=== PATIENT | female | born 1940 | race Caucasian/White ===

== ENCOUNTER 2022-05-22 08:36 | Day surgery (SDC) | payer OTHER ==
[2022-05-22 08:36] LABS: Absolute Lymphocytes (CBC) 1.3 K/uL (0.7-4.9); Hematocrit 35.6 % (36.0-45.0); Lymphocytes % 19.3 % (15.3-44.8); MPV 7.9 fL (7.6-11.3)
--- NOTE | 2022-05-22 08:46 | RAD REPORT ---
EXAM DESCRIPTION: RAD - Chest Pa And Lat (2 Views) - 05/22/2022 8:38 am CLINICAL HISTORY: Pre op pending mass removal from back COMPARISON: <Comparisons> FINDINGS: Lines: None. Lungs: No evidence of edema or pneumonia. Pleural: No significant pleural effusions or pneumothorax. Cardiac: The heart size is within normal limits. Mediastinum: Within normal limits. Bones: No acute fractures. Other: None IMPRESSION: No acute cardiopulmonary disease.
[2022-05-22 08:53] LABS: Potassium 4.2 mmol/L (3.5-5.1)
[2022-05-22] MEDS ORDERED: MIDAZOLAM HCL 2 MG/2 ML INJ ONE (09:02)
[2022-05-22] MEDS ORDERED: FENTANYL CITR 100 MCG/2 ML ONE (09:02)
[2022-05-22] MEDS ORDERED: propofoL 200 MG/20 ML VIAL IV ONE (09:02)
[2022-05-22] MEDS ORDERED: NA CHLORIDE 0.9% 1,000 ML ONE (09:09)
[2022-05-22] MEDS ORDERED: CIPROFLOXACIN 400mg IV 400 MG/200 ML BAG IV ONE (09:09)
[2022-05-22] MEDS ORDERED: LIDOCAINE 2% MPF 5 ML VIAL ONE (09:20)
[2022-05-22] MEDS ORDERED: dexAMETHasone 4 MG/ML VIAL ONE (09:38)
[2022-05-22] MEDS ORDERED: ONDANSETRON 4 MG/2 ML VIAL ONE (09:38)
[2022-05-22] MEDS ORDERED: EPHEDRINE SULF 50 MG/ML VIAL ONE (10:00)
--- NOTE | 2022-05-22 10:01 | P.BOP ---
Preoperative diagnosis: tender subQ back masses Postoperative diagnosis: same Primary procedure: Escisional biopsy subQ mass: 1. upper back 3.5 x 3.5cm Secondary procedure: 2. Midback 3 x 3cm, 3. Lower back 2 x 2cm Estimated blood loss: <10cc Specimen: mass x 3 Findings: as above Anesthesia: General Complications: None Transferred to: Recovery Room Condition: Good
[2022-05-22 11:18] VITALS: BP 122/42; O2SAT 100
[2022-05-22 12:27] VITALS: TEMP 97
--- NOTE | 2022-05-22 21:15 | OP ---
Date of Procedure: 05/22/2022 Surgeon: Brendan Pereyra MD Preoperative Diagnosis: Tender subcutaneous back masses. Postoperative Diagnosis: Tender subcutaneous back masses. Procedures: 1.Excisional biopsy of tender subcutaneous upper back mass, 3.5 x 3.5 cm. 2.Excisional biopsy of tender subcutaneous mass in mid back, 3 x 3 cm. 3.Excisional biopsy of tender subcutaneous mass in lower back, 2 x 2 cm. Estimated Blood Loss: Less than 10 cc. Specimen: Mass x3. Anesthesia: General plus local. Finding: As above. Complications: None. Indications: This is a case of a female who comes to us with 3 masses, increasing in size, changing in size and color and tenderness. Patient wants them excised. The benefits, alternatives, and risks of excision were fully explained, which include, but not limited to infection, bleeding, damage to a djacent structures, anesthesia complication, recurrence, NV, and even . She also understands th is might not relieve any symptoms. She may need more than one surgical intervention. She understood and signed a consent. The areas of concern were marked by me and the patient in the holding room. Description Of Procedure: The patient was brought to the operating room and placed in supine positio n. Anesthesia was given without complication. The patient was placed in lateral decubitus position with proper protection. Back areas were prepped and draped in usual sterile fashion. Each mass was done individually using the same technique, which consisted of sharp incision of the skin and mass wa s excised. The ones on the mid and upper one are deeper. Each mass was excised individually. Hemos tasis was obtained and then we proceeded to close this in this way: At the one in the upper back, we did 3-0 chromic subcutaneous and then a 3-0 nylon on the skin. The midback was 3-0 chromic subcutan eous and 3-0 nylon on the skin. On the lower back, we only used a 3-0 nylon on the skin. The patien t tolerated the procedure well. Sponge count and instrument counts were correct. Hemostasis was obt ained before closure and irrigation was done also before closure with local anesthetic applied. AMANDA/JAZZMINE Voice ID: [id number] Report ID: [id number]
--- NOTE | 2022-05-22 21:15 | DS ---
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 Procedure: Excisional biopsy of upper, mid back, and lower back subcutaneous masses. Disposition: Home. Activity: As tolerated, no heavy lifting. Follow Up: In my office in 1 week. Call for appointment at [phone]. Discharge Instructions: Keep area dry for 48 hours, then may shower with dressings off. AMANDA/JAZZMINE Voice ID: [id number] Report ID: [id number]
--- NOTE | 2022-05-23 06:32 | EKG ---
Test Date: 2022-05-22 Test Time: 08:15:59 Sulfonation Equipment Operator: LINDA MEASUREMENT RESULTS: Intervals: Rate: 56 AK: 150 QRSD: 98 QT: 430 QTc: 414 [place]: P: 56 AK: 150 QRS: 7 T: 30 INTERPRETIVE STATEMENTS: Sinus bradycardia with marked sinus arrhythmia Otherwise normal ECG No previous ECG available for comparison Electronically Signed On 05-23-22 06:30:28 [employer]UGBOAT ENGINEER by Tho Valencia
== END 2022-05-22 11:51 | disposition home or self-care (01) ==
LOC: OR 08:36
PROVIDERS: ATTEND Surgery
PROC: 0JB70ZZ Excision of Back Subcutaneous Tissue and Fascia, Open Approach (ICD-10-PCS; 2022-05-22)
PROC: 0JB70ZZ Excision of Back Subcutaneous Tissue and Fascia, Open Approach (ICD-10-PCS; 2022-05-22)
PROC: 0JB70ZZ Excision of Back Subcutaneous Tissue and Fascia, Open Approach (ICD-10-PCS; principal; 2022-05-22 09:45)
DX: D36.17 Benign neoplasm of peripheral nerves and autonomic nervous system of trunk, unspecified (principal); L72.0 Epidermal cyst; L82.1 Other seborrheic keratosis; E11.9 Type 2 diabetes mellitus without complications; I10 Essential (primary) hypertension; I51.9 Heart disease, unspecified; E78.00 Pure hypercholesterolemia, unspecified
CPT/HCPCS: 93005; 85025; 80048; 36415; 82947; 88304; 88305; 71046; 11404; 11403; 11402; J2704; J1100; J2001; J2250; J3010; J7030; J2405; J0744

== ENCOUNTER 2024-06-22 07:51 | Inpatient (IN) | payer OTHER ==
[2024-06-18 11:46] LABS: Sqamous Epithelial <5 /HPF (None Seen); Urine Bacteria None Seen /HPF (<20); Urine Bilirubin NEGATIVE (Negative); Urine Blood Negative (Negative); Urine Clarity Turbid (Clear); Urine Color Light-Yellow (Yellow); Urine Culture Reflex Order NOT NEEDED; Urine Glucose NEGATIVE (Negative); Urine Ketones NEGATIVE (Negative); Urine Microscopic Reflex YN ORDER UMIC; Urine Nitrite NEGATIVE (Negative); Urine Protein NEGATIVE (Negative); Urine RBC None Seen /HPF (None Seen); Urine Urobilinogen Normal (Normal); Urine WBC <5 /HPF (<5); Urine pH 5.5 (5.0-7.0)
[2024-06-18 11:47] LABS: Absolute Basophils 0.1 K/uL (0-0.5); Absolute Eosinophils 0.3 K/uL (0-0.5); Absolute Monocytes 0.6 K/uL (0.1-1.3); Basophils % 0.7 % (0-1.3); Eosinophils % 3.2 % (0-4.4); Hematocrit 38.3 % (36.0-45.0); Hemoglobin 12.5 g/dL (12.0-15.0); Lymphocytes % 19.7 % (15.3-44.8); MCH 29.6 pg (27.0-35.0); MCHC 32.8 g/dL (32.0-36.0); MCV 90.4 fL (80-100); MPV 9.8 fL (7.6-11.3); Monocytes % 6.4 % (3.3-12.3); Platelets 229 thou/uL (152-406); RBC Red Blood Cell Count 4.23 M/uL (3.86-4.86); Red Cell Distribution Width 14.7 % (12.1-15.2)
[2024-06-18 11:51] LABS: PT Prothrombin Time 11.6 SECONDS (9.4-12.5); PTT, Activated Partial Thromb 38.3 SECONDS (24.3-36.9); Protime INR 1.04
[2024-06-18 12:04] LABS: Albumin 4.3 g/dL (3.4-5.0); Anion Gap 8.4 mEq/L (5.0-15.0); Globulin 4.2 g/dL (2.3-3.5); Potassium 4.4 mEq/L (3.5-5.1); Protein, Total 8.5 g/dL (6.4-8.2)
[2024-06-18 12:37] LABS: Blood Morphology Comment NOT SEEN (NOT SEEN); Platelet Estimate ADEQ; White Blood Cell Scan OK (OK)
--- NOTE | 2024-06-18 14:07 | RAD REPORT ---
EXAMINATION: TWO VIEW CHEST XR CLINICAL INDICATION: Female, 83 years old. [facility] Pre-op pending knee arthroplasty. Hypertension TECHNIQUE: 2 view radiographs of the chest were performed. COMPARISON: 05/22/2022 FINDINGS: The lungs are well inflated and clear. No pneumothorax or sizable effusion. The heart is normal in si ze. Mediastinal contours are unremarkable. IMPRESSION: No acute or significant abnormalities.
[2024-06-22] MEDS: dexAMETHasone 10 MG/ML VIAL ONE (08:27)
[2024-06-22] MEDS: EPINEPHRINE 1 MG/ML VIAL ONE (08:28)
[2024-06-22] MEDS: BUPIVACAINE 0.25% PF 30 ML VIAL ONE (08:28)
[2024-06-22] MEDS: LIDOCAINE 1% MPF 5 ML VIAL ONE (08:28)
[2024-06-22] MEDS: NA CHLORIDE 0.9% 1,000 ML ONE ×2 (08:35→14:15)
[2024-06-22] MEDS: Oxycodone HCl/Acetaminophen 5/325 MG TAB ONE (10:08)
[2024-06-22] MEDS ORDERED: propofoL 200 MG/20 ML VIAL IV ONE (10:08)
[2024-06-22] MEDS: ACETAMINOPHEN 500 MG TAB ONE (10:08)
[2024-06-22] MEDS ORDERED: FENTANYL CITR 100 MCG/2 ML ONE (10:08)
[2024-06-22] MEDS: GABAPENTIN 100 MG CAP ONE (10:08)
[2024-06-22] MEDS: CELECOXIB 100 MG CAPSULE ONE (10:08)
[2024-06-22] MEDS ORDERED: LIDOCAINE 1% MPF 2 ML AMPULE ONE (10:08)
[2024-06-22] MEDS: MAGNESIUM SULFATE 1 gm IVPB 1 GM/100 ML BAG IV ONE (11:03)
[2024-06-22] MEDS ORDERED: LIDOCAINE 2% MPF 5 ML VIAL ONE (11:03)
[2024-06-22] MEDS: DEXMEDETOMIDINE HCL 200 MCG/2 ML VIAL ONE (11:03)
[2024-06-22] MEDS ORDERED: KETAMINE HCL IN 0.9 % NACL 50 MG/5 ML SYRINGE IV ONE (11:10)
[2024-06-22] MEDS: ONDANSETRON 4 MG/2 ML VIAL ONE (12:04)
[2024-06-22] MEDS: CEFAZOLIN SODIUM 2 GM/VIAL ONE (12:25)
[2024-06-22] MEDS: TRANEXAMIC ACID 1,000 MG/10 ML VIAL IV ONE (12:30)
[2024-06-22] MEDS ORDERED: EPHEDRINE SULF 50 MG/ML VIAL ONE (12:32)
[2024-06-22] MEDS ORDERED: HYDRALAZINE HCL 20 MG/ML VIAL ONE (13:09)
[2024-06-22] MEDS ORDERED: DOCUSATE NA 100 MG CAP PO PRN (14:34)
[2024-06-22] MEDS ORDERED: HYDROCODONE/APAP 7.5/325 MG TAB PO PRN (14:34)
--- NOTE | 2024-06-22 14:41 | P.BOP ---
Preoperative diagnosis: left knee arthritis Postoperative diagnosis: same Primary procedure: left total knee arthoplasty Estimated blood loss: 100 ccs Anesthesia: General Transferred to: Recovery Room Condition: Good
[2024-06-22] MEDS: HYDROMORPHONE HCL 1 MG/ML INJ ONE (15:14)
[2024-06-22] MEDS ORDERED: HOME MED 1 EA UNK (Tizanidine Hcl [Zanaflex] 2 MG Capsule) PO PRN (17:59)
--- NOTE | 2024-06-22 18:01 | P.CNS ---
Date of Consult: 06/22/24 Reason for Consult: Medical management Chief Complaint: Patient presenting with left total knee replacement History of Present Illness: Patient is a 83-year-old female who presents with left total knee replacement. Patient was having some tenderness and plan is for patient to get out of bed and ambulate. Patient will be admitted to the hospital for further evaluation. Allergies codeine Allergy (Verified 06/18/24 10:45) Vomiting erythromycin base Allergy (Verified 06/18/24 10:45) Hives/Rash meperidine [From Demerol] Allergy (Verified 06/18/24 10:45) Nausea/Vomiting Penicillins Allergy (Verified 06/18/24 10:45) Hives/Rash propoxyphene [From Darvon] Allergy (Verified 06/18/24 10:45) Nausea/Vomiting Home Medications: Acetaminophen [Tylenol Arthritis] 650 mg PO BID 05/22/22 Allopurinol 100 mg PO BID 05/22/22 Amlodipine Besylate [Norvasc] 2.5 mg PO DAILY 05/22/22 Lisinopril [Zestril] 2.5 mg PO DAILY 05/22/22 Magnesium Oxide [Magnesium] 400 mg PO DAILY 05/22/22 Simvastatin 20 mg PO DAILY 05/22/22 Sitagliptin Phosphate [Januvia] 100 mg PO DAILY 05/22/22 hydroCHLOROthiazide [Hydrochlorothiazide*] 12.5 mg PO DAILY 05/22/22 Ergocalciferol (Vitamin D2) [Vitamin D 50,000 Unit Cap] 50,000 unit PO EVERY 7TH DAY 06/18/24 Tizanidine HCl [Zanaflex] 2 mg PO Q8HP PRN 06/18/24 - Past Medical/Surgical History Diabetic: Yes -: diabetes -: stage 2 kidney disease -: hypertension -: arthritis -: hysterectomy -: back surgery (ruptured disc) -: cataract - Family History Mother Medical History: Diabetes - Social History Smoking Status: Former smoker Alcohol use: Yes CD- Drugs: No Caffeine use: Yes Place of Residence: Home Review of Systems 10-point ROS is otherwise unremarkable Physical Examination Temp Pulse Resp BP Pulse Ox 96.9 F 96 H 15 141/63 H 96 06/22/24 16:00 06/22/24 16:00 06/22/24 16:00 06/22/24 16:00 06/22/24 16:00 General: Alert, In no apparent distress, Oriented x3 HEENT: Atraumatic, PERRLA, Mucous membr. moist/pink, EOMI, Sclerae nonicteric Neck: Supple, 2+ carotid pulse no bruit, No LAD, Without JVD or thyroid abnormality Respiratory: Clear to auscultation bilaterally, Normal air movement Cardiovascular: Regular rate/rhythm, Normal S1 S2 Gastrointestinal: Normal bowel sounds, No tenderness Musculoskeletal: Tenderness (Left total knee) Integumentary: No rashes Neurological: Normal speech, Normal strength at 5/5 x4 extr, Normal tone, Sensation intact, Cranial nerves 3-12 intact, Normal affect, Abnormal gait Lymphatics: No axilla or inguinal lymphadenopathy - Problems (1) Status post total left knee replacement Status: Acute (2) Metabolic syndrome Status: Acute (3) Chronic kidney disease, stage III (moderate) Status: Acute Conclusions/ Impression: Plan: 1. Left total knee replacement; continue with physical therapy. Continue with pain control. Continue with DVT prophylaxis 2. Metabolic syndrome; strict blood pressure and blood sugar control 3. Chronic kidney disease; monitor renal function Critical Care: No Time Spent Managing Pts care (In Minutes): 45
[2024-06-22] MEDS: CEFAZOLIN 1 GM in NA CHLORIDE 0.9% 50 ML IVPB SCH (18:02)
[2024-06-22 18:47] VITALS: BMI 31.6
[2024-06-22] MEDS: allopurinoL 100 MG TAB PO SCH (21:18)
[2024-06-22] MEDS: ATORVASTATIN 10 MG TAB PO SCH (21:18)
[2024-06-22] MEDS: ONDANSETRON 4 MG/2 ML VIAL IV PRN (21:18)
--- NOTE | 2024-06-23 00:58 | OP ---
Date of Procedure: 06/22/2024 Surgeon: Nikunj Woodruff MD Preoperative Diagnosis: Left severe degenerative joint disease of the knee, which has not responded to conservative management. 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 Procedure Performed: Left total knee arthroplasty using the Biomet total knee system. Estimated Blood Loss: 100 cc. Complications: There were no complications. Specimens: No pathology specimens sent. Indications For Operation: Ms. Piedra is an 83-year-old female, who has been suffering for many yea rs with debilitating knee pain. She has treated this with injections, medications, attempted to lose weight, essentially now limits her activities of daily living, and is extremely painful for her. Ri sks, benefits, and alternatives to total knee arthroplasty have been discussed with her. She states she understands things as presented and wished to proceed. Description Of Procedure: The patient was taken to the operating room and placed in supine position. General anesthesia was easily obtained by the Anesthesia staff. She had previously had a block in the holding area. Following this, a well-padded tourniquet was placed on superior left thigh. Left lower extremity was then prepped and draped in usual sterile fashion for the procedure. After this, the leg was then elevated and gently exsanguinated with Scooby wrap. Tourniquet was raised. A standard anterior approach was taken down carefully through skin and soft tissues. Meticulous hemostasis enrico ng maintained using Bovie electrocautery. It should be noted there was quite a bit of adipose tissue . However, the tibial tubercle was identified and the extensor mechanism was then exposed using appr opriate level. After this, a standard medial parapatellar arthrotomy was then performed with liberat ion of approximately 20 cc of rather normal-appearing synovial fluid. This revealed severe bone-on-b one changes throughout. After this, the medial and lateral menisci as well as ACL were resected and intramedullary guide was placed. Distal cut was made and it was sized to a size 67-1/2. The remaind er of the femoral cuts were made. After this, attention was then turned to the tibia. It was found to be quite dished out medially, but a standard tibia cut was then made removing the tibia in 1 piece . It was then trialed using the trial femur and trial tibia with size 10 polyethylene. It comes to full extension, it appears to be balanced. The patella appears to glide well. After this, the munson la was then calipered and cut and trial patella was then placed. It again glides very well. After t his, attention was then turned to the femur, where the box was cut for the posterior cruciate sacrifi cing knee and the tibia was punched. All surfaces were then prepped for cementation. All of the fin al components were then cemented with the exception of the tibial polyethylene. The cement was allow ed to dry and any unsupported cement was removed. Once the cement was dried, the trial polyethylene was removed and it was replaced with a size 10 polyethylene as it does come to full flexion, full ext ension, and it was balanced. After this was copiously irrigated and more search was made for any res idual cement, the extensor mechanism was then repaired using heavy Ethibond sutures. This was follow ed by closure of skin using Vicryl sutures followed by matilde. The patient was then placed in a kylah y well-padded sterile dressing, awakened, taken to recovery room in good condition. No complications . SE/MODL Voice ID: [id number] Report ID: [id number]
[2024-06-23] MEDS: ENOXAPARIN 30 MG/0.3 ML SQ SCH (06:23)
[2024-06-23 07:39] LABS: Hematocrit 33.5 % (36.0-45.0); Hemoglobin 11.2 g/dL (12.0-15.0)
[2024-06-23 07:50] LABS: Anion Gap 6.3 mEq/L (5.0-15.0); Potassium 4.3 mEq/L (3.5-5.1)
[2024-06-23] MEDS ORDERED: HOME MED 1 EA UNK (Sitagliptin Phosphate [Januvia] 50 MG Tablet) PO SCH (09:00)
[2024-06-23] MEDS ORDERED: HOME MED 1 EA UNK (Simvastatin [Simvastatin] 20 MG Tablet) PO SCH (09:00)
[2024-06-23] MEDS: ALOGLIPTIN BENZOATE 12.5 MG TABLET PO SCH (09:40)
[2024-06-23] MEDS: AMLODIPINE 2.5 MG TAB PO SCH (09:41)
[2024-06-23] MEDS: TIZANIDINE 4 MG TABLET PO PRN (14:43)
[2024-06-23 22:28] VITALS: O2SAT 94
[2024-06-24 07:07] LABS: Hematocrit 30.1 % (36.0-45.0); Hemoglobin 10.1 g/dL (12.0-15.0)
[2024-06-24 07:10] LABS: Absolute Lymphocytes (CBC) 1.3 K/uL (0.7-4.9); Absolute Monocytes 1.2 K/uL (0.1-1.3); Absolute Neutrophil 9.5 K/uL (1.8-8.0); Basophils % 0.1 % (0-1.3); Hematocrit 30.4 % (36.0-45.0); Hemoglobin 10.1 g/dL (12.0-15.0); Lymphocytes % 10.7 % (15.3-44.8); MCH 30.2 pg (27.0-35.0); MCHC 33.3 g/dL (32.0-36.0); MCV 90.8 fL (80-100); MPV 8.9 fL (7.6-11.3); Monocytes % 10.1 % (3.3-12.3); Neutrophils % 79.1 % (41.7-73.7); Platelets 195 thou/uL (152-406); RBC Red Blood Cell Count 3.34 M/uL (3.86-4.86); Red Cell Distribution Width 14.9 % (12.1-15.2)
[2024-06-24 07:27] LABS: Anion Gap 6.3 mEq/L (5.0-15.0); Magnesium 2.4 mg/dL (1.6-2.4); Potassium 4.3 mEq/L (3.5-5.1)
--- OUTSIDE RECORDS SUMMARY | 2024-06-24 10:52 | XMS REPORT | Continuity of Care Document ---
Author Name Unknown Address [address] [facility] [address] [place] [address] [facility] thconnect Address [address] [facility] [address] [place] [address] Care Team Providers Care Mobile Manager Name Role Phone Shravan Barahona Primary Care Physician [phone] DESTIN DAMIAN Attending Clinician Unavailable Rush Arroyo MD Attending Clinician [phone] Lindsey Peralta MA Attending Clinician Unavailable Jayla Anderson MA Attending Clinician Unavailab Mehreen Melendez MA Attending Clinician Unavailabl e DESTIN DAMIAN, LANA Attending Clinician BEN Muñoz APRN Attending Clinician Unavail able DESTIN DAMIAN, MAR Attending Clinician Howard ble Payers Payer Name Policy Type Policy Number Effective Date Expirati on Date Source [facility] AAR MEDICARE COMPLETE [id number] 2020 00:00:00 2020 00:00:00 [facility] WELLMED [id number] 2020 00:00:00 Problems Condition Name Condition Details Condition Category Status Onset Date Resolution Date Last Treatment Date Treating Clinician Comments Source Chronic pain of both knees Chronic pain of both knees Disease Active 12-01 00:00: 00 [facility] Bilateral primary osteoarthr itis of knee Bilateral primary osteoarthr itis of knee Disease Active 12-01 00:00: 00 [facility] Left knee pain Left knee pain Problem Active [facility] Bilateral knee pain Bilateral knee pain Problem Active [facility] Osteoarthr itis of left knee Osteoarthr itis of left knee Problem Active [facility] Osteoarthr itis of right knee Osteoarthr itis of right knee Problem Active [facility] Osteoarthr itis of knees, bilateral Osteoarthr itis of knees, bilateral Problem Active [facility] Allergies, Adverse Reactions, Alerts Allergy Name Allergy Type Status Severity Reaction(s) Onset Date Inactive Date Treating Clinician Comments Source Codeine Allergy to substanc e Active 11-24 00:00: 00 [facility] Erythrom ycin Allergy to substanc e Active 11-24 00:00: 00 [facility] Penicill ins Allergy to substanc e Active 11-24 00:00: 00 [facility] Penicill ins Allergy to drug (finding ) Active [facility] Percocet TABS Allergy to drug (finding ) Active [facility] Vicodin TABS Allergy to drug (finding ) Active [facility] codeine Allergy to drug (finding ) Active [facility] Darvocet A500 Allergy to drug (finding ) Active [facility] erythrom ycin Allergy to drug (finding ) Active [facility] Social History Social Habit Start Date Stop Date Quantity Comments Source Sexual orientation [facility] Exposure to SARS-CoV-2 (event) 2022-10-19 00:00:00 2022-10-29 12:32:00 Not sure [facility] Alcohol intake 2021-08-10 00:00:00 2021-08-10 00:00:00 Ex-drinker (finding) [facility] History of Social function 2021-08-10 00:00:00 2021-08-10 00:00:00 [facility] Sex Assigned At 1940 00:00:00 1940 00:00:00 [facility] Smoking Status Start Date Stop Date Source Never smoked tobacco [facility] Medications Ordered Medication Name Filled Medication Name Start Date Stop Date Current Medication? Ordering Clinician Indication Dosage Frequency Signature (SIG) Comments Components Source Sodium Hyaluronate (Viscosup) solution prefilled syringe 20 mg 2022-07 17:30: 00 05-28 17:30 :00 No [id number] 20mg [facility] lidocaine (Xylocaine) 1 % injection 1 mL 2022-07 17:30: 00 05-28 17:30 :00 No [id number] 1mL [facility] Sodium Hyaluronate (Viscosup) solution prefilled syringe 20 mg 2022-07 16:00: 00 05-21 16:00 :00 No [id number] 20mg [facility] lidocaine (Xylocaine) 1 % injection 1 mL 2022-07 16:00: 00 05-21 16:00 :00 No [id number] 1mL [facility] Sodium Hyaluronate (Viscosup) solution prefilled syringe 20 mg 2022-07 15:30: 00 05-14 15:30 :00 No [id number] 20mg [facility] lidocaine (Xylocaine) 1 % injection 1 mL 2022-07 15:30: 00 05-14 15:30 :00 No [id number] 1mL [facility] Sodium Hyaluronate solution prefilled syringe 20 mg 18 18:00: 00 10-29 18:00 :00 No [id number] 20mg [facility] lidocaine (Xylocaine) 1 % injection 1 mL 10-29 18:00: 00 10-29 18:00 :00 No [id number] 1mL 1 mL, Injection, Once PRN Procedure, Starting on Fri10/29/22 at 1300, For 1 dose [facility] Sodium Hyaluronate solution prefilled syringe 20 mg 10-22 18:00: 00 10-22 18:00 :00 No [id number] 20mg [facility] lidocaine (Xylocaine) 1 % injection 1 mL 10-22 18:00: 00 10-22 18:00 :00 No [id number] 1mL [facility] Sodium Hyaluronate solution prefilled syringe 20 mg 10-11 18:00: 00 10-11 18:00 :00 No [id number] 20mg [facility] lidocaine (Xylocaine) 1 % injection 1 mL 10-11 18:00: 00 10-11 18:00 :00 No [id number] 1mL [facility] Sodium Hyaluronate solution prefilled syringe 20 mg 03-14 18:15: 02 03-14 18:15 :00 No [id number] 20mg [facility] lidocaine (Xylocaine) 1 % injection 1 mL 03-14 18:15: 03-14 18:15 :00 No [id number] 1mL [facility] Sodium Hyaluronate solution prefilled syringe 20 mg 03-07 18:38: 52 03-07 18:38 :00 No [id number] 20mg [facility] lidocaine (Xylocaine) 1 % injection 1 mL 03-07 18:38: 52 03-07 18:38 :00 No [id number] 1mL [facility] Sodium Hyaluronate solution prefilled syringe 20 mg 02-26 18:37: 02 02-26 18:37 :00 No [id number] 20mg [facility] lidocaine (Xylocaine) 1 % injection 1 mL 02-26 18:37: 02 02-26 18:37 :00 No [id number] 1mL [facility] sodium hyaluronate (viscosup) (Hyalgan) injection 20 mg 02-01 15:45: 00 02-22 13:59 :00 No [id number] 20mg [facility] sodium hyaluronate (viscosup) (Hyalgan) injection 20 mg 2020-07 21:15: 00 Yes [id number] 20mg [facility] allopurinol (Zyloprim) 100 MG tablet 11-13 00:00: 00 Yes [facility] amLODIPine (Norvasc) 2.5 MG tablet 11-13 00:00: 00 Yes [facility] furosemide (Lasix) 20 MG tablet 11-13 00:00: 00 Yes [facility] hydroCHLORO thiazide (HYDRODiuri l) 12.5 MG tablet 11-13 00:00: 00 Yes [facility] lisinopril 2.5 MG tablet - 00:00: 00 Yes [facility] simvastatin (Zocor) 20 MG tablet - 00:00: 00 Yes [facility] Procedures Procedure Date / Time Performed Performing Clinicia n Source ARTHROCENTESIS ASPIR&/INJ MAJOR JT/BURSA W/O BILATERAL 2023-05-28 17:30:00 Destin Damian [facility] ARTHROCENTESIS ASPIR&/INJ MAJOR JT/BURSA W/O BILATERAL 2023-05-21 16:00:00 Destin Damian [facility] ARTHROCENTESIS ASPIR&/INJ MAJOR JT/BURSA W/O BILATERAL 2023-05-14 15:30:00 Destin Damian [facility] ARTHROCENTESIS ASPIR&/INJ MAJOR JT/BURSA W/O BILATERAL 2022-10-29 18:00:00 Destin Damian [facility] ARTHROCENTESIS ASPIR&/INJ MAJOR JT/BURSA W/O US BILATERAL 2022-10-22 18:00:00 Destin Damian [facility] ARTHROCENTESIS ASPIR&/INJ MAJOR JT/BURSA W/O BILATERAL 2022-10-11 18:00:00 Destin Damian [facility] ARTHROCENTESIS ASPIR&/INJ MAJOR JT/BURSA W/O BILATERAL 2022-03-14 18:15:02 Destin Damian [facility] ARTHROCENTESIS ASPIR&/INJ MAJOR JT/BURSA W/O BILATERAL 2022-03-07 18:38:52 Destin Damian [facility] ARTHROCENTESIS ASPIR&/INJ MAJOR JT/BURSA W/O BILATERAL 2022-02-26 18:37:02 Destin Damian [facility] [[facility]] [facility] - [facility] Injection 2020-10-23 00:00:00 [facility] - [facility] Injection 2020-03-13 00:00:00 [facility] - [facility] Injection 2019-08-04 00:00:00 [facility] - [facility] Injection 2019-06-25 00:00:00 [facility] - [facility] Injection 2018-10-20 00:00:00 [facility] Plan of Care Planned Activity Planned Date Details Comments Source Diagnostic Test Pending 2020-10-23 00:00:00 [[facility]] [facility] - Author[facility] Injection [code = [[facility]] Ortho - [facility] Injection] [facility] Diagnostic Test Pending 2020-03-13 00:00:00 [[facility]] Ortho - Authorize Injection [code = [[facility]] Ortho - [facility] Injection] [facility] Diagnostic Test Pending 2020-03-13 00:00:00 [[facility]] Ortho - Authorize Injection [code = [[facility]] Ortho - [facility] Injection] [facility] Diagnostic Test Pending 2019-08-04 00:00:00 [[facility]] Ortho - Authorize Injection [code = [[facility]] Ortho - [facility] Injection] [facility] Diagnostic Test Pending 2019-08-04 00:00:00 [[facility]] Ortho - Authorize Injection [code = [[facility]] Ortho - Authorize Injection] [facility] Diagnostic Test Pending 2019-06-25 00:00:00 [[facility]] Ortho - Authorize Injection [code = [[facility]] Ortho - [facility] Injection] [facility] Diagnostic Test Pending 2018-10-20 00:00:00 [[facility]] Ortho - Authorize Injection [code = [[facility]] Ortho - [facility] Injection] [facility] Encounters Start Date/Time End Date/Time Encounter Type Admission Type Attending Clinicians Care Facility Care Department Encounter ID Source 2022-10-23 08:34:07 Outpatient [facility] [id number] [facility] 2022-10-11 12:31:33 Outpatient [facility] [id number] [facility] 2022-10-03 15:15:12 Outpatient [facility] [id number] [facility] 2022-10-02 10:57:41 Outpatient [facility] [id number] [facility] 2022-09-17 10:08:54 Outpatient [facility] [id number] [facility] 2022-08-09 09:35:32 Outpatient [facility] [id number] [facility] 2021-08-03 08:39:48 Outpatient BRETTMARTN [facility] [id number] [facility] 2021-07-25 15:32:54 Outpatient BRETT, DESTIN [facility] [id number] [facility] 2023-05-28 11:30:00 2023-05-28 11:43:15 Procedure Visit Destin Damian [facility] [place] [facility] [place] 2 1.2.840.114 350.1.13.58 9.2.7.2.686 [id number] [facility] 2023-05-21 10:00:00 2023-05-21 10:42:19 Procedure Visit Destin Damian [facility] [place] 2 1.2.840.114 350.1.13.58 9.2.7.2.686 [id number] [facility] 2023-05-14 10:30:00 2023-05-14 10:30:00 Procedure Visit Destin Damian [facility] [place] 2 1.2.840.114 350.1.13.58 9.2.7.2.686 [id number] [facility] 2022-10-29 13:00:00 2022-10-29 13:26:13 Procedure Visit Destin Damian [facility] [place] 1.2.840.114 350.1.13.58 9.2.7.2.686 [id number] [facility] 2022-10-22 13:00:00 2022-10-22 13:21:21 Procedure Visit Destin Damian [facility] [place] 1.2.840.114 350.1.13.58 9.2.7.2.686 [id number] [facility] 2022-10-11 13:00:00 2022-10-11 13:27:52 Procedure Visit Destin Damian [facility] [place] 1.2.840.114 350.1.13.58 9.2.7.2.686 [id number] [facility] 2022-03-14 13:30:00 2022-03-14 13:30:00 Procedure Visit Destin Damian [facility] [place] 1.2.840.114 350.1.13.58 9.2.7.2.686 [id number] [facility] 2022-03-07 13:30:00 2022-03-07 13:38:02 Procedure Visit Destin Damian [facility] [place] 1.2.840.114 350.1.13.58 9.2.7.2.686 [id number] [facility] 2022-02-26 13:30:00 2022-02-26 13:49:53 Procedure Visit Destin Damian [facility] [place] 1.2.840.114 350.1.13.58 9.2.7.2.686 [id number] [facility] 2022-02-11 00:00:00 2022-02-11 00:00:00 Telephone Rush Arroyo [facility] [place] 1.2.840.114 350.1.13.58 9.2.7.2.686 [id number] [facility] 2022-01-28 00:00:00 2022-01-28 00:00:00 Telephone Lindsey Peralta Ashley [facility] [place] 1.2.840.114 350.1.13.58 9.2.7.2.686 [id number] 1 [id number] [facility] 2021-08-10 13:30:00 2021-08-10 13:30:00 Procedure Visit Destin Damian [facility] [place] 1.2.840.114 350.1.13.58 9.2.7.2.686 [id number] 1 [id number] [facility] 2021-07-27 13:30:00 2021-07-27 13:30:00 Procedure Visit Destin Damian [facility] [place] 1.2.840.114 350.1.13.58 9.2.7.2.686 [id number] 1 [id number] [facility] 2021-07-25 00:00:00 2021-07-25 00:00:00 Telephone Jayla Anderson Beatris [facility] [place] 1.2.840.114 350.1.13.58 9.2.7.2.686 [id number] [facility] 2021-05-30 00:00:00 2021-05-30 00:00:00 Orders Only Mehreen Sommers Doriz [facility] [place] 1.2.840.114 350.1.13.58 9.2.7.2.686 [id number] [facility] 2020-12-07 13:03:13 2020-12-07 13:24:47 Procedure Visit Mart Damiann [facility] [place] 1.2.840.114 350.1.13.58 9.2.7.2.686 [id number] 1 [id number] [facility] 2020-12-01 12:37:35 2020-12-01 13:23:51 Procedure Visit Mart Damiann [facility] [place] 1.2.840.114 350.1.13.58 9.2.7.2.686 [id number] 1 [id number] [facility] 2020-11-24 12:42:14 2020-11-24 13:33:00 Procedure Visit Mart Damiann [facility] [place] 1.2.840.114 350.1.13.58 9.2.7.2.686 [id number] 1 [id number] [facility] 2020-04-12 11:30:00 2020-04-12 11:30:00 Appointmen t; DESTIN DAMIAN [employer]ENING MACHINE SETTER BRETT DESTIN, FLAME HARDENING MACHINE SETTER [facility] [place] 1 [id number] [facility] 2020-04-07 11:30:00 2020-04-07 11:30:00 Appointmen t; DESTIN DAMIAN [employer] HARDENING MACHINE SETTER BRETT DESTIN, FLAME HARDENING MACHINE SETTER [facility] [place] 1 [id number] [facility] 2020-03-31 13:00:00 2020-03-31 13:00:00 Appointmen t; DESTIN DAMIAN FLAME HARDENING MACHINE SETTER BRETT DESTIN, FLAME HARDENING MACHINE SETTER [facility] [place] 1 [id number] [facility] 2019-09-24 11:30:00 2019-09-24 11:30:00 Appointmen t; BRETTMARTN, FLAME HARDENING MACHINE SETTER BRETT DESTIN, FLAME HARDENING MACHINE SETTER [facility] [place] 1 [id number] [facility] 2019-09-17 11:30:00 2019-09-17 11:30:00 Appointmen t; BRETT, DESTIN, FLAME HARDENING MACHINE SETTER BRETT DESTIN, FLAME HARDENING MACHINE SETTER [facility] [place] 1 [id number] [facility] 2019-09-10 11:30:00 2019-09-10 11:30:00 Appointmen t; BRETT, DESTIN, FLAME HARDENING MACHINE SETTER BRETT, DESTIN, FLAME HARDENING MACHINE SETTER [facility] [place] 1 [id number] [facility] 2019-08-04 13:30:00 2019-08-04 13:30:00 Appointmen t; TY, NICHOLETTE , FLAME HARDENING MACHINE SETTER TY, NICHOLETTE, FLAME HARDENING MACHINE SETTER [facility] [place] 1 [id number] [facility] 2018-11-23 13:00:00 2018-11-23 13:00:00 Appointmen t; BRETT DESTIN, FLAME HARDENING MACHINE SETTER BRETT DESTIN, FLAME HARDENING MACHINE SETTER [facility] [place] 1 [id number] [facility] 2018-11-17 13:00:00 2018-11-17 13:00:00 Appointmen t; BRETT, DESTIN, FLAME HARDENING MACHINE SETTER BRETT DESTIN, FLAME HARDENING MACHINE SETTER [facility] [place] 1 [id number] [facility] 2018-11-10 15:00:00 2018-11-10 15:00:00 Appointmen t; BRETT DESTIN, FLAME HARDENING MACHINE SETTER BRETT DESTIN, FLAME HARDENING MACHINE SETTER [facility] [place] [facility] 1 [id number] [facility] 2018-04-17 11:00:00 2018-04-17 11:00:00 Appointmen t; BRETT DESTIN, FLAME HARDENING MACHINE SETTER BRETT DESTIN, FLAME HARDENING MACHINE SETTER [facility] [id number] [facility] 2018-04-10 11:00:00 2018-04-10 11:00:00 Appointmen t; BRETT DESTIN, FLAME HARDENING MACHINE SETTER BRETT DESTIN, FLAME HARDENING MACHINE SETTER [facility] [id number] [facility] 2018-04-03 11:00:00 2018-04-03 11:00:00 Appointmen t; BRETT DESTIN, FLAME HARDENING MACHINE SETTER BRETT, DESTIN, FLAME HARDENING MACHINE SETTER [facility] [id number] [facility] 2017-09-09 13:00:00 2017-09-09 13:00:00 Appointmen t; BRETT, DESTIN, FLAME HARDENING MACHINE SETTER BRETT DESTIN, FLAME HARDENING MACHINE SETTER [facility] [id number] [facility] 2017-02-21 11:00:00 2017-02-21 11:00:00 Lilian owens; DESTIN DAMIAN NP MCDOUGALL, SEAN, NP [facility] [id number] [facility]
[2024-06-24 12:03] VITALS: BP 114/58; TEMP 97.6
[2024-06-27 13:46] LABS: 1,25 Dihydroxy Vitamin D3 <8 pg/mL; Vitamin D 1,25-Dihydroxy Total 12 pg/mL (18-72); Vitamin D,1,25-OH2, D2 12 pg/mL
--- NOTE | 2024-06-29 02:20 | P.PN ---
Date of Service: 06/23/24 Subjective Patient is doing well with physical therapy. Arranging for custodial facility placement. Physical Examination Vitals: Reviewed General: Alert, In no apparent distress, Oriented x3 Respiratory: Clear to auscultation bilaterally, Normal air movement Cardiovascular: Regular rate/rhythm, Normal S1 S2 Gastrointestinal: Normal bowel sounds, No tenderness Musculoskeletal: Tenderness (Left total knee) Integumentary: No rashes Neurological: No focal deficits - Problems (1) Status post total left knee replacement Status: Acute (2) Metabolic syndrome Status: Acute (3) Chronic kidney disease, stage III (moderate) Status: Acute Conclusions/ Impression: Plan: 1. Left total knee replacement; continue with physical therapy. Continue with pain control. Continue with DVT prophylaxis 2. Metabolic syndrome; strict blood pressure and blood sugar control 3. Chronic kidney disease; monitor renal function Critical Care: No Time Spent Managing Pts care (In Minutes): 25
--- NOTE | 2024-06-29 02:21 | P.DS ---
Discharge Date: 06/24/24 Disposition: DC HOME/HOME HEALTH CARE Discharge Condition: GOOD Reason for Admission: Patient presenting with left total knee replacement - Problems (1) Status post total left knee replacement Status: Acute (2) Metabolic syndrome Status: Acute (3) Chronic kidney disease, stage III (moderate) Status: Acute Brief History of Present Illness: Patient is a 83-year-old female who presents with left total knee replacement. Patient was having some tenderness and plan is for patient to get out of bed and ambulate. Patient will be admitted to the hospital for further evaluation. Hospital Course: Patient is doing well and stable for discharge with home health. Patient will continue with physical therapy at discharge and will continue with pain control and DVT prophylaxis. Vital Signs/Physical Exam: Temp Pulse Resp BP Pulse Ox 97.6 F 83 18 114/58 L 100 06/24/24 12:00 06/24/24 12:00 06/24/24 12:00 06/24/24 12:00 06/24/24 12:00 General: Alert, In no apparent distress, Oriented x3 Laboratory Data at Discharge: WBC 12.00 thou/uL (4.3-10.9) H 06/24/24 06:14 Hgb 10.1 g/dL (12.0-15.0) L 06/24/24 06:14 Hgb 10.1 g/dL (12.0-15.0) L D 06/24/24 06:14 Hct 30.1 % (36.0-45.0) L 06/24/24 06:14 Hct 30.4 % (36.0-45.0) L 06/24/24 06:14 Plt Count 195 thou/uL (152-406) 06/24/24 06:14 PT 11.6 SECONDS (9.4-12.5) 06/18/24 11:15 INR 1.04 06/18/24 11:15 APTT 38.3 SECONDS (24.3-36.9) H 06/18/24 11:15 Sodium 140 mEq/L (136-145) 06/24/24 06:14 Potassium 4.3 mEq/L (3.5-5.1) 06/24/24 06:14 BUN 35 mg/dL (7-18) H 06/24/24 06:14 Creatinine 1.14 mg/dL (0.55-1.02) H 06/24/24 06:14 Glucose 127 mg/dL (74-106) H 06/24/24 06:14 Magnesium 2.4 mg/dL (1.6-2.4) 06/24/24 06:14 Total Bilirubin 1.0 mg/dL (0.2-1.0) 06/18/24 11:15 AST 22 U/L (15-37) 06/18/24 11:15 ALT 15 U/L (13-56) 06/18/24 11:15 Alkaline Phosphatase 78 U/L (45-117) 06/18/24 11:15 Home Medications: Acetaminophen [Tylenol Arthritis] 650 mg PO BID 05/22/22 Allopurinol 100 mg PO BID 05/22/22 Amlodipine Besylate [Norvasc] 2.5 mg PO DAILY 05/22/22 Lisinopril [Zestril] 2.5 mg PO DAILY 05/22/22 Magnesium Oxide [Magnesium] 400 mg PO DAILY 05/22/22 Simvastatin 20 mg PO DAILY 05/22/22 Sitagliptin Phosphate [Januvia] 100 mg PO DAILY 05/22/22 hydroCHLOROthiazide [Hydrochlorothiazide*] 12.5 mg PO DAILY 05/22/22 Ergocalciferol (Vitamin D2) [Vitamin D 50,000 Unit Cap] 50,000 unit PO EVERY 7TH DAY 06/18/24 Tizanidine HCl [Zanaflex] 2 mg PO Q8HP PRN 06/18/24 Physician Discharge Instructions: Home Health arranged by Dr. Woodruff's office with: [facility] P:[phone] -DC IV and DC home -Follow-up with PCP in 1 to 2 weeks -Follow-up with Orthopedics in 1 week -Please call Dr. Mendoza at [phone] if any questions regarding hospital stay -Please call nursing station at [phone] if any nursing or medication questions -Return to the emergency room if symptoms worsen Diet: AHA Activity: Fall precautions Followup: Nikunj Woodruff MD [ACTIVE - CAN ADMIT] - 1-2 Weeks Shravan Barahona MD [Primary Care Provider] - 1-2 Weeks Time spent managing pt's care (in minutes): 35
== END 2024-06-24 16:19 | disposition home health service (06) | DRG 470 ==
LOC: OR 07:51 → 4TH 14:34 → OR 06-23 18:01 → 4TH 06-23 18:02
PROVIDERS: ADMIT Hospitalist; ATTEND Orthopaedic Surgery
PROC: 0SRD0J9 Replacement of Left Knee Joint with Synthetic Substitute, Cemented, Open Approach (ICD-10-PCS; principal; 2024-06-22 10:30)
DX: M17.12 Unilateral primary osteoarthritis, left knee (principal); N17.9 Acute kidney failure, unspecified; E11.9 Type 2 diabetes mellitus without complications; I10 Essential (primary) hypertension; E11.22 Type 2 diabetes mellitus with diabetic chronic kidney disease; I12.9 Hypertensive chronic kidney disease with stage 1 through stage 4 chronic kidney disease, or unspecified chronic kidney disease; N18.30 Chronic kidney disease, stage 3 unspecified; Z79.4 Long term (current) use of insulin; E88.810 Metabolic syndrome
CPT/HCPCS: 36415; 71046; 80048; 80053; 81001; 82306; 82652; 82947; 83519; 83735; 83970; 85014; 85018; 85025; 85610; 85730; 88305; 88311; 94010; 97110; 97116; 97139; 97530; C1776; J0171; J0360; J0690; J1100; J1171; J1650; J2003; J2405; J2704; J3010; J3475; J7030